=== PATIENT | female | born 1945 | race Caucasian/White ===

== ENCOUNTER 2020-01-04 07:58 | Outpatient (CLI) | payer MEDICARE, SELFPAY ==
--- NOTE | 2020-01-04 08:03 | USCV_ITS ---
Maria R Sargent Age: 74 Gender: F : 1945 Exam Date: 01/04/2020 08:20 Ordering Phys: Viviane Galdamez FUR PLUCKER Technologist: Jackie Vazquez Exam Location: [facility] [place] Indication: atrial fibrillation BP: / HR: 62 Rhythm: Sinus Technical Quality: Good MEASUREMENTS (Male / Female) Normal Values 2D ECHO LV Diastolic Diameter PLAX 4.8 cm 4.2 - 5.9 / 3.9 - 5.3 cm LV Systolic Diameter PLAX 3.0 cm IVS Diastolic Thickness 0.6 cm 0.6 - 1.0 / 0.6 - 0.9 cm IVS Systolic Thickness 1.0 cm LVPW Diastolic Thickness 0.8 cm 0.6 - 1.0 / 0.6 - 0.9 cm LVPW Systolic Thickness 1.4 cm LVOT Diameter 2.0 cm LV Ejection Fraction 2D Teich 67.6 % LV Ejection Fraction MOD 2C 57.0 % LV Ejection Fraction 2C AL 58.4 % LA Diameter 2.8 cm LA Width 3.9 cm LA Height 4.5 cm RA Width 3.9 cm RA Height 3.3 cm M-MODE LV Diastolic Diameter MM 4.9 cm 4.2 - 5.9 / 3.9 - 5.3 cm LV Systolic Diameter MM 3.3 cm LV Ejection Fraction MM Teich 61.9 % IVS Diastolic Thickness MM 1.1 cm 0.6 - 1.0 / 0.6 - 0.9 cm IVS Systolic Thickness MM 1.2 cm LVPW Diastolic Thickness MM 0.8 cm 0.6 - 1.0 / 0.6 - 0.9 cm LVPW Systolic Thickness MM 1.4 cm Aortic Annulus Diameter 3.4 cm LA Ao Ratio MM 0.8 MV E Point Septal Separation 0.5 cm DOPPLER AV Peak Velocity 110.0 cm/s LVOT Peak Velocity 87.0 cm/s AV Area Cont Eq vti 2.8 cm squared AV Area Cont Eq pk 2.5 cm squared MV Peak Velocity 80.0 cm/s MV Area PHT 3.9 cm squared Mitral E to A Ratio 0.8 MV E' Velocity 34.5 cm/s Mitral E to MV E' Ratio 9.0 Mitral E to LV E' Lateral Ratio 7.4 Mitral E to LV E' Septal Ratio 11.9 TR Peak Velocity 242.0 cm/s TR Peak Gradient 23.4 mmHg Right Atrial Pressure 3.0 mmHg Pulmonary Artery Systolic Pressu 26.4 mmHg PV Peak Velocity 123.0 cm/s RV Acceleration Time 0.1 s FINDINGS Left Ventricle Normal left ventricular size and systolic function, EF 60 %. No regional wall motion abnormalities. Right Ventricle The right ventricle is normal in size and function. Right Atrium The right atrium is normal in size. Left Atrium Mildly increased left atrial size. Mitral Valve Mild-moderate mitral valve regurgitation. Aortic Valve Thickened aortic valve. Trace aortic valve regurgitation. Tricuspid Valve Mild tricuspid valve regurgitation. Estimated pulmonary artery peak systolic pressure 26 mmHg Pulmonic Valve Structurally normal pulmonic valve without significant stenosis. There is no pulmonic regurgitation. Pericardium Normal pericardium without effusion. Aorta Normal ascending aorta dimension. CONCLUSIONS Normal left ventricular size and systolic function, EF 60 %. No regional wall motion abnormalities. Mildly increased left atrial size. Mild-moderate mitral valve regurgitation. Thickened aortic valve. Trace aortic valve regurgitation. Mild tricuspid valve regurgitation. Estimated pulmonary artery peak systolic pressure 26 mmHg. There are no intracardiac masses. There is no pericardial effusion. No previous study is available for comparison. Dr Sara Wild MD [facility] (Electronically Signed) Final Date: 04 January 2020 18:23 S
== END 2020-01-04 07:59 | disposition home or self-care (01) ==
LOC: US 08:01
PROVIDERS: PCP Family Medicine; Visit Provider Nurse Practitioner Family
DX: I48.91 Unspecified atrial fibrillation (principal); I08.3 Combined rheumatic disorders of mitral, aortic and tricuspid valves
CPT/HCPCS: 93306

== ENCOUNTER 2020-06-12 15:11 | Outpatient (CLI) | payer MEDICARE, SELFPAY ==
--- NOTE | 2020-06-12 15:18 | MM_ITS ---
WS: [id number] BILATERAL DIGITAL SCREENING MAMMOGRAPHY WITH CAD CLINICAL INFORMATION: SCREENING HISTORY: Screening mammogram. No current complaints. COMPARISON: [id number] TECHNIQUE: Bilateral CC and MLO views. FINDINGS: Scattered fibroglandular densities bilaterally. No suspicious focal mass, asymmetry, calcifications, or architectural distortion. No evidence of malignancy. A few punctate calcifications. Vascular calci fication. MM/[place] [id number] IMPRESSION: BI-RADS: 2-Benign FOLLOW UP: 1 Year Follow-up Recommend return to annual screening mammography.
== END 2020-06-12 15:12 | disposition home or self-care (01) ==
PROVIDERS: PCP Nurse Practitioner Family; Visit Provider Nurse Practitioner Family
DX: Z12.31 Encounter for screening mammogram for malignant neoplasm of breast (principal)
CPT/HCPCS: 77067

== ENCOUNTER → 2021-10-29 15:07 | Outpatient (BNVA) | payer MEDICARE, SELFPAY | PROVIDERS: PCP Nurse Practitioner Family; Visit Provider Internal Medicine | DX: I48.91 Unspecified atrial fibrillation (principal); I10 Essential (primary) hypertension; I34.0 Nonrheumatic mitral (valve) insufficiency; Z87.891 Personal history of nicotine dependence | CPT/HCPCS: 99213; 99214 ==

== ENCOUNTER 2021-11-07 14:11 | Observation (INO) | payer MEDICARE, SELFPAY ==
[2021-11-07] VITALS (13 sets, daily range): BP systolic 118–174; BP diastolic 62–88; PULSE 54–116; RESP 16–20; TEMP 36.5–36.9; O2SAT 92–100; BMI 18.8
--- NOTE | 2021-11-07 14:28 | XR_ITS ---
WS: [id number] Portable AP upright chest, 11/07/2021 Clinical Data: chest pain Comparison: Portable chest, 10/08/2012. Findings: No nodules, masses or effusions are seen. The heart is normal. The pulmonary vascularity is not increased. No pneumonia or pneumothorax is seen. The diaphragms are flattened. The aortic arch a nd descending thoracic aorta show mild calcification and tortuosity. XR/XR chest 1V portable [id number] Impression: Atherosclerosis and hyperinflation.
--- NOTE | 2021-11-07 14:28 | ECG_ITS ---
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 Measurements Intervals [place] Rate: 67 P: 70 DE: 153 QRS: 72 QRSD: 78 T: 72 QT: 398 QTc: 421 Interpretive Statements SINUS RHYTHM MINIMAL VOLTAGE CRITERIA FOR LVH, CONSIDER NORMAL VARIANT [MEETS CRITERIA IN ONE OF: R(aVL), S(V1), R(V5), R(V5/V6)+S(V1)] No previous ECG available for comparison Electronically Signed On 11-08-2021 12:49:57 CDT by Stephenie Carlson M.D. [email or web address] health [email or web address]/store/NU/[id number] f
[2021-11-07 15:25] LABS: Basophils % 0.4 %; Eosinophils # 0.1 10^3/uL (0.0-0.8); Eosinophils % 1.8 %; Hemoglobin 7.3 g/dL (11.5-15.3); Lymphocytes # 1.5 10^3/uL (0.8-4.8); Lymphocytes % 29.3 %; Mean Corpuscular HGB Conc 31.7 g/dL (30.0-36.0); Mean Corpuscular Hemoglobin 29.2 pg (28.0-34.0); Mean Platelet Volume 9.8 fL (7.4-10.4); Monocytes # 0.5 10^3/uL (0.2-0.9); Monocytes % 9.2 %; Neutrophils # 3.01 10^3/uL (1.8-7.7); Neutrophils % 59.1 %; Nucleated Red Blood Cells % 0 %; Platelet Count 216 10^3/cmm (130-400); Red Cell Distribution Width 15.2 % (12.1-15.1); White Blood Count 5.1 10^3/uL (4.0-10.0)
[2021-11-07 15:51] LABS: Troponin(5th) Baseline 8 ng/L (0-10)
[2021-11-07 15:54] LABS: Alanine Aminotransferase 23 U/L (0-33); Albumin Level 3.6 g/dL (3.5-5.2); Alkaline Phosphatase 70 IU/L (35-105); Anion Gap 11.6 (5-19); Aspartate Amino Transferase 37 U/L (0-32); Blood Urea Nitrogen 21 mg/dL (8-23); Calcium 8.5 mg/dL (8.5-10.5); Carbon Dioxide 26 mmol/L (22-29); Chloride 109 mmol/L (98-107); Globulin 2.1 g/dL (1.3-4.6); Glucose 92 mg/dL (65-115); Osmolality Calculated 299 mOsm/kg (285-295); Potassium 3.6 mmol/L (3.5-5.1); Sodium 143 mmol/L (136-145); Total Bilirubin 0.2 mg/dL (0.15-1.2); Total Protein 5.7 g/dL (6.6-8.7)
--- NOTE | 2021-11-07 15:59 | W.ED.GENADLT ---
HPI - General Adult General: Chief complaint: General Medical Stated complaint: Wekaness, Heart palptations, with some pain Time Seen by Provider: 11/07/21 15:51 Source: patient Mode of arrival: ambulatory History of Present Illness: 75-year-old female presents emergency room complaining of weakness or palpitations. She states she has had it for the last week she also had some dark stools. She has a history of atrial fibrillation mitral regurg and hypertension. She is on Xarelto and metoprolol she has been on both of these for some time now no recent medication dose adjustments. She denies any chest pain or discomfort she has no known history of coronary disease or stroke she is not diabetic. Onset (ago): minute(s) Severity: mild Relieving factors: none Exacerbating factors: none Associated symptoms: Reports dyspnea, malaise, short of breath and weakness; Deny chest pain, confusion, cough, diaphoresis, decreased appetite, fevers/chills, headache(s), nausea, rash, palpitations, seizures, syncope or vomiting Review of Systems Const: Reports: malaise; Denies: fever(s), chills, fatigue or diaphoresis ENMT: Denies: throat pain, ear or mastoid pain, nasal discharge or nasal congestion Card: Denies: chest pain, palpitations or syncope Resp: Reports: dyspnea; Denies: productive cough, non-productive cough or wheezing GI: Denies: abdominal pain, nausea, vomiting or hematochezia : Denies: flank pain, difficulty voiding, dysuria, urinary frequency or urinary urgency Skin/Breast: Denies: rash Neuro: Denies: headache(s) or confusion PFS ED PFSH: Medical History Afib Hypertension Mitral regurgitation Social History Smoking and tobacco status: former smoker Alcohol intake: never Physical Exam Const: GENERAL APPEARANCE: cooperative and comfortable ORIENTATION/CONSCIOUSNESS: Yes awake, Yes oriented to person, Yes oriented to place and Yes oriented to time HENMT: COMMON NORMALS: normocephalic, atraumatic and hearing grossly normal bilaterally HEAD & SCALP: normocephalic and atraumatic Resp: COMMON NORMALS: normal respiratory effort, No retractions, No use of accessory muscles and clear to auscultation bilaterally AUSCULTATION: clear to auscultation bilaterally Cardio: COMMON NORMALS: regular rate, regular rhythm and No murmurs present (Cardio) RATE: regular rate RHYTHM: regular rhythm GI: COMMON NORMALS: Soft to palpation and No hepatosplenomegaly present AUSCULTATION: Yes normoactive bowel sounds PALPATION: Yes Soft to palpation, No Tenderness to palpation present (GI), No Guarding due to palpation present (GI) and Yes No hepatosplenomegaly present Extremity: COMMON NORMALS: normal to inspection, capillary refill normal, no clubbing, cyanosis or edema, no calf tenderness and no pedal edema Neuro: SENSORIUM/ORIENTATION: Yes oriented to person, Yes oriented to place and Yes oriented to time Skin: COMMON NORMALS: no rashes or lesions noted GENERAL SKIN EXAM: no rashes or lesions noted Course Vital Signs: Vital signs: Vital Signs Temperature 98.4 F 11/07/21 14:29 Pulse Rate 67 11/07/21 14:29 Respiratory Rate 16 11/07/21 14:29 Blood Pressure 130/66 11/07/21 14:29 Pulse Oximetry 99 11/07/21 14:29 Oxygen Delivery Me thod 11/07/21 14:29 MDM - General Adult Medical Decision Making Patient significantly anemic with suspected upper GI bleed secondary to her anticoagulant. Hold anticoagulant transfuse 1 unit of blood monitor patient she may require an EGD discussed with hospitalist orders written Medical Records I reviewed the patient's medical records. Lab Data I reviewed the patient's lab results. : 11/07/21 14:19 11/07/21 14:19 Radiology Impressions Chest X-Ray 11/07/21 14:28 Impression: Atherosclerosis and hyperinflation. Laboratory Results WBC 5.1 10^3/uL (4.0-10.0) 11/07/21 14:19 RBC 2.50 10^6/uL (4.1-5.3) L 11/07/21 14:19 Hgb 7.3 g/dL (11.5-15.3) L 11/07/21 14:19 Hct 23.0 % (37.0-47.0) L 11/07/21 14:19 MCV 92.0 fl (81-99) 11/07/21 14:19 MCH 29.2 pg (28.0-34.0) 11/07/21 14:19 MCHC 31.7 g/dL (30.0-36.0) 11/07/21 14:19 RDW 15.2 % (12.1-15.1) H 11/07/21 14:19 Plt Count 216 10^3/cmm (130-400) 11/07/21 14:19 MPV 9.8 fL (7.4-10.4) 11/07/21 14:19 Neut % (Auto) 59.1 % 11/07/21 14:19 Lymph % (Auto) 29.3 % 11/07/21 14:19 Kinney % (Auto) 9.2 % 11/07/21 14:19 Eos % (Auto) 1.8 % 11/07/21 14:19 Baso % (Auto) 0.4 % 11/07/21 14:19 Reticulocyte % (Auto) 5.0 % (0.5-2.0) H 11/07/21 14:19 Neut # (Auto) 3.01 10^3/uL (1.8-7.7) 11/07/21 14:19 Lymph # (Auto) 1.5 10^3/uL (0.8-4.8) 11/07/21 14:19 Kinney # (Auto) 0.5 10^3/uL (0.2-0.9) 11/07/21 14:19 Eos # (Auto) 0.1 10^3/uL (0.0-0.8) 11/07/21 14:19 Baso # (Auto) 0.0 10^3/uL (0.0-0.1) 11/07/21 14:19 Nucleated RBC % (auto) 0 % 11/07/21 14:19 Nucleated RBCs # 0.0 /100WBC 11/07/21 14:19 PT 16.50 SECONDS (12.1-14.9) H 11/07/21 16:18 INR 1.29 (0.8-1.2) H 11/07/21 16:18 APTT 29.8 SECONDS (23.9-36.7) 11/07/21 16:18 Sodium 143 mmol/L (136-145) 11/07/21 14:19 Potassium 3.6 mmol/L (3.5-5.1) 11/07/21 14:19 Chloride 109 mmol/L (98-107) H 11/07/21 14:19 Carbon Dioxide 26 mmol/L (22-29) 11/07/21 14:19 Anion Gap 11.6 (5-19) 11/07/21 14:19 BUN 21 mg/dL (8-23) 11/07/21 14:19 Creatinine 0.7 mg/dL (0.5-0.9) 11/07/21 14:19 GFR Calculation Not Reportable 11/07/21 14:19 Glucose 92 mg/dL (65-115) 11/07/21 14:19 Calculated Osmolality 299 mOsm/kg (285-295) H 11/07/21 14:19 Calcium 8.5 mg/dL (8.5-10.5) 11/07/21 14:19 Iron 30 ug/dL (37-145) L 11/07/21 14:19 TIBC 252 mcg/dl 11/07/21 14:19 % Saturation 11.9 % (20-50) L 11/07/21 14:19 Unsat Iron Binding 222 ug/dL (112-347) 11/07/21 14:19 Transferrin 224 mg/dL (200-360) 11/07/21 14:19 Ferritin 70 ng/mL (15-150) 11/07/21 14:19 Total Bilirubin 0.2 mg/dL (0.15-1.2) 11/07/21 14:19 AST 37 U/L (0-32) H 11/07/21 14:19 ALT 23 U/L (0-33) 11/07/21 14:19 Alkaline Phosphatase 70 IU/L (35-105) 11/07/21 14:19 Troponin T Baseline 8 ng/L (0-10) 11/07/21 14:19 Troponin T 120 Minute 7.53 ng/L (0-10) 11/07/21 16:18 Delta Troponin T -0.47 ABS# (0-10) L 11/07/21 16:18 Total Protein 5.7 g/dL (6.6-8.7) L 11/07/21 14:19 Albumin 3.6 g/dL (3.5-5.2) 11/07/21 14:19 Globulin 2.1 g/dL (1.3-4.6) 11/07/21 14:19 Vitamin B12 267 pg/mL (232-1245) 11/07/21 14:19 Blood Type A Positive 11/07/21 16:12 Rho(D) Type Positive 11/07/21 16:12 Antibody Screen Negative 11/07/21 16:12 Crossmatch See Detail 11/07/21 16:12 Discharge Plan Discharge Patient Disposition: Placed in Observation Admit Provider: Bill Spangler Clinical Impression: Anemia, Hypertension, Afib Condition: Stable Coding Level of Care Code ED Gas Engine Operator for Chg Fwd Exam Detailed
--- NOTE | 2021-11-07 16:28 | ECG_ITS ---
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 Measurements Intervals [place] Rate: 67 P: 78 [place]: 143 QRS: 69 QRSD: 85 T: 69 QT: 433 QTc: 459 Interpretive Statements SINUS RHYTHM LEFT VENTRICULAR HYPERTROPHY AND ST-T CHANGE [VOLTAGE CRITERIA PLUS ST/T ABNORMALITY] Compared to ECG 11/07/2021 14:27:47 ST (T wave) deviation now present Electronically Signed On 11-08-2021 12:53:14 CDT by Stephenie Carlson M.D. [id number]
--- NOTE | 2021-11-07 16:34 | PM.HP ---
Providers/Chief Complaint Primary Care Provider: LAURA Chapa Chief Complaint: Wekaness, Heart palptations, with some pain History of Present Illness Maria R Sargent is a 75 year old female with PMH of HTN as well as A.Fib on xaralto came in with c/o generalized weakness as well as fatigue and SOB with exertion going on for the last few weeks she is also complaining of dark stool. She has denied any weight loss, nausea, vomiting, abdominal pain , chest pain,fever,cough. Upon arrival in the ER she was worked up for above mention complain. Pertienet imaging studies: Xray chest : No infiltrates, hyperinflated lungs. EKG: SR Pertinent labs : WBC:5.1 H&:H: 7.3/23 PLT : 216 NA: 143 K : 3.6 BUN/SCR : 21/0.7 Review of Systems General: Reports: 10 or more systems reviewed and unremarkable except in HPI and below Const: Denies: fever(s), chills, body aches, change in appetite or diaphoresis Card: Denies: edema, swelling of feet/ankles, dyspnea on exertion, orthopnea or leg pain with exertion Resp: Denies: dyspnea, productive cough, wheezing or pain on inspiration GI: Denies: abdominal pain, nausea, vomiting, diarrhea or constipation : Denies: flank pain Musc: Denies: back pain, extremity pain or extremity swelling Neuro: Denies: headache(s), difficulty walking or confusion Medications/Allergies Home Medications Medication Instructions Recorded Confirmed Last Taken Type metoprolol tartrate 25 mg tablet 25 mg PO BID #180 tabs 04/22/21 11/07/21 11/07/21 Rx rivaroxaban 20 mg tablet (Xarelto) 20 mg PO DAILY #90 tabs 05/16/21 11/07/21 11/07/21 Rx Allergies Allergy/AdvReac Type Severity Reaction Status Date / Time Sulfa (Sulfonamide Allergy Unknown Unknown Verified 11/07/21 16:03 Antibiotics) PFSH Acute PFSH: Medical History Afib Hypertension Mitral regurgitation Social History Smoking and tobacco status: former smoker Alcohol intake: never Vitals/I&O/Wt Last Vital Signs Temp 98.4 F 11/07/21 14:29 Pulse 67 11/07/21 14:29 Resp 16 11/07/21 14:29 BP 130/66 11/07/21 14:29 Pulse Ox 99 11/07/21 14:29 O2 Del Method 11/07/21 14:29 Weight last 48 hrs Weight 58.967 kg Physical Exam Const: COMMON NORMALS: patient oriented x3 HENMT: COMMON NORMALS: normocephalic and atraumatic Eye: COMMON NORMALS: no scleral icterus Resp: COMMON NORMALS: normal respiratory effort, No retractions, No use of accessory muscles and clear to auscultation bilaterally EFFORT & INSPECTION: Yes symmetric chest movement AUSCULTATION: clear to auscultation bilaterally Cardio: COMMON NORMALS: regular rate, regular rhythm, S1 normal heart sound present, S2 normal heart sound present, No gallops present (Cardio), No murmurs present (Cardio), No rub (Cardio) and Peripheral pulses 2+ throughout RATE: regular rate RHYTHM: regular rhythm HEART SOUNDS: S1 normal heart sound present and S2 normal heart sound present PERIPHERAL PULSES: Peripheral pulses 2+ throughout GI: COMMON NORMALS: Normal to inspection, nondistended, normoactive bowel sounds present, Soft to palpation, non-tender, No hepatosplenomegaly present and no masses AUSCULTATION: Yes normoactive bowel sounds PALPATION: Yes Soft to palpation and Yes No hepatosplenomegaly present RECTAL EXAM: deferred Extremity: COMMON NORMALS: no clubbing, cyanosis or edema and no pedal edema Neuro: COMMON NORMALS: patient oriented x3 Data : 11/07/21 14:19 11/07/21 14:19 A&P Assessment and plan (1) Afib: Status: Acute (2) Mitral regurgitation: Status: Acute (3) Hypertension: Status: Acute (4) Anemia: Status: Acute Plan 75 year old female with PMH of HTN as well as A.Fib on xaralto came in with c/o generalized weakness as well as fatigue and SOB with exertion going on for the last few weeks she is also complaining of dark stool. Assessment : UGIB Anemia A.Fib HTN Plan : Follow anemia pane l : Transfuse 1 u PRBC Maintain Hb>7 Monitor H&H Hold Xaralto NPO after midnight for EGD in am DVT:PPX :ON SCDS Code Status :Full code Attestations Medical Necessity Statement*: Patient needs to be in hospital for the management of severe symptomatic Anemia. Time Spent in Patient Care: Greater than 35 minutes (>than 50% of time spent in counselling and/or direct pt care on unit). Coding Level of Care Code Acute Sole Stapler Welt for g Fwd Exam Detailed Diagnoses Afib I48.91 Mitral regurgitation I34.0 Hypertension I10 Anemia D64.9
[2021-11-07 16:37] LABS: INR 1.29 (0.8-1.2); Partial Thromboplastin Time 29.8 SECONDS (23.9-36.7)
--- NOTE | 2021-11-07 16:40 | PC.NURSE ---
PT PLACED ON CONTINUOUS NIBP, SPO2, AND CM
[2021-11-07 16:57] LABS: Ferritin 70 ng/mL (15-150); Iron 30 ug/dL (37-145); Percent Saturation 11.9 % (20-50); Total Iron Binding Capacity 252 mcg/dl; Transferrin 224 mg/dL (200-360); Unsaturated Iron Binding 222 ug/dL (112-347)
[2021-11-07 17:04] LABS: Troponin 5 2HR 7.53 ng/L (0-10)
[2021-11-07 17:13] LABS: Vitamin B12 267 pg/mL (232-1245)
[2021-11-07 17:17] LABS: Troponin 5 2HR Delta -0.47 ABS# (0-10)
[2021-11-07 17:46] LABS: Folate Level > 20.0 ng/mL (4.8-37.3)
[2021-11-07] MEDS: pantoprazole 40 mg SDV IVP (18:54)
[2021-11-07] MEDS: metoprolol tartrate 25 mg Tablet PO (18:54)
[2021-11-07 21:01] LABS: Troponin 5 6HR 8.96 ng/L (0-10)
[2021-11-07 21:18] LABS: Troponin 5 6HR Delta 0.96 ng/L (0-12)
--- NOTE | 2021-11-07 21:32 | ECG_ITS ---
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 Measurements Intervals [place] Rate: 57 P: 48 [place]: 169 QRS: 66 QRSD: 80 T: 71 QT: 451 QTc: 442 Interpretive Statements SINUS BRADYCARDIA MODERATE VOLTAGE CRITERIA FOR LVH, CONSIDER NORMAL VARIANT [MEETS CRITERIA IN ONE OF: R(aVL), S(V1), R(V5), R(V5/V6)+S(V1)] Compared to ECG 11/07/2021 16:55:47 Sinus rhythm no longer present ST (T wave) deviation no longer present Electronically Signed On 11-08-2021 12:52:24 CDT by Stephenie Carlson M.D. [id number]
[2021-11-08] VITALS (8 sets, daily range): BP systolic 98–141; BP diastolic 49–75; PULSE 50–72; RESP 15–18; TEMP 36.1–36.7; O2SAT 96–100
[2021-11-08 03:04] LABS: Basophils % 0.9 %; Eosinophils # 0.1 10^3/uL (0.0-0.8); Eosinophils % 3.2 %; Hematocrit 27.1 % (37.0-47.0); Hemoglobin 8.4 g/dL (11.5-15.3); Lymphocytes # 1.5 10^3/uL (0.8-4.8); Lymphocytes % 34.7 %; Mean Corpuscular Hemoglobin 28.9 pg (28.0-34.0); Mean Corpuscular Volume 93.1 fl (81-99); Mean Platelet Volume 10.3 fL (7.4-10.4); Monocytes # 0.5 10^3/uL (0.2-0.9); Monocytes % 11.4 %; Neutrophils # 2.17 10^3/uL (1.8-7.7); Neutrophils % 49.6 %; Nucleated Red Blood Cells % 0 %; Platelet Count 184 10^3/cmm (130-400); Red Blood Count 2.91 10^6/uL (4.1-5.3); Red Cell Distribution Width 16.3 % (12.1-15.1); White Blood Count 4.4 10^3/uL (4.0-10.0)
[2021-11-08 03:29] LABS: Blood Urea Nitrogen 19 mg/dL (8-23); Calcium 8.3 mg/dL (8.5-10.5); Carbon Dioxide 24 mmol/L (22-29); Chloride 111 mmol/L (98-107); Glucose 83 mg/dL (65-115); Osmolality Calculated 295 mOsm/kg (285-295); Sodium 142 mmol/L (136-145)
[2021-11-08] MEDS: pantoprazole 40 mg SDV IVP (05:59)
[2021-11-08] MEDS: sodium chloride 0.9% (100 ml) 100 ML (05:59)
[2021-11-08] MEDS: metoprolol tartrate 25 mg Tablet PO (07:51)
--- NOTE | 2021-11-08 09:04 | P.CONIM_ITS ---
Providers/Reason For Consult Consulting Physician/Specialty*: General Surgery Dr. Hightower Reason for Consult*: Mana Attending Physician: Bill Spangler MD Primary Care Provider: LAURA Chapa History of Present Illness History of Present Illness Maria R Sargent is a 75 year old female who presented to the ER yesterday with complaints of generalized weakness, fatigue and shortness of breath. Patient states that she has been passing black stools for the last few days. She denies any abdominal pain, nausea, vomiting, hematemesis. No prior episodes of EGD, PUD or GERD. She has never had a colonoscopy before. Review of Systems General: Reports: 10 or more systems reviewed and unremarkable except in HPI and below Medications/Allergies Home Medications Medication Instructions Recorded Confirmed Last Taken Type metoprolol tartrate 25 mg tablet 25 mg PO BID #180 tabs 04/22/21 11/07/21 11/07/21 Rx rivaroxaban 20 mg tablet (Xarelto) 20 mg PO DAILY #90 tabs 05/16/21 11/07/21 11/07/21 Rx Allergies Allergy/AdvReac Type Severity Reaction Status Date / Time Sulfa (Sulfonamide Allergy Unknown Unknown Verified 11/07/21 16:03 Antibiotics) Current Medications Generic Name Dose Route Start Last Admin Trade Name Freq PRN Reason Stop Dose Admin Metoprolol Tartrate 25 mg 11/07/21 18:00 11/08/21 07:51 Metoprolol Tartrate 25 Mg Tablet PO 25 mg BID SAMREEN Administration Pantoprazole Sodium 40 mg 11/07/21 18:00 11/08/21 05:59 Pantoprazole 40 Mg Sdv IVP 40 mg Q12H SAMREEN Administration PFSH Acute PFSH: Medical History Afib Hypertension Mitral regurgitation Social History Smoking and tobacco status: former smoker Alcohol intake: never Vitals/I&O/Wt Last Vital Signs Temp 97.9 F 11/08/21 07:41 Pulse 58 L 11/08/21 07:41 Resp 16 11/08/21 07:41 BP 132/73 11/08/21 07:41 Pulse Ox 96 11/08/21 07:41 O2 Del Method 11/08/21 07:41 08/07/2611/08/21 11/08/21 22:59 06:59 14:59 Intake Total 120 / 370 250 / 370 Output Total 200 / 200 Balance 120 / 170 50 / 170 Weight last 48 hrs Weight 124 lb 4.8 oz Weight 124 lb 3.2 oz Weight 130 lb Physical Exam Narrative: HEENT: Normocephalic Eye: Sclera /conjunctiva normal Abdomen: Soft to palpation, nontender, nondistended Neurological: Oriented to place person and time Skin: Intact, no lesions appreciated on gross exam Data : 11/08/21 02:16 11/08/21 02:16 A&P Assessment and plan (1) Anemia: 75-year-old female who presented with generalized weakness and melena. She is on Xarelto for atrial fibrillation. Her hemoglobin on admission was 7.3. She received 1 unit PRBC and her hemoglobin is up to 8.4. Plan for EGD under MAC today Discussed with the patient about performing an EGD to identify the potential source of the melena which will also help with deciding when she could be restarted on her Xarelto. Procedure, risks, benefits and alternatives have been discussed with the patient who wishes to proceed with surgery. Status: Acute Consult Attestations Medical Necessity Statement: As per attending physician Coding Level of Care Code Acute Market Research Analyst for g Fwd Diagnoses Anemia D64.9
[2021-11-08] MEDS: sodium chloride 0.9% 1,000 ML 30 ML IV (09:08)
--- NOTE | 2021-11-08 09:24 | ANES.PREANE2 ---
Pre-Anesthetic Assessment Height/Weight: Height 1.73 m Weight 56.382 kg Temp Pulse Resp BP Pulse Ox O2 Del Method 97.0 F L 51 L 16 141/75 97 11/08/21 09:18 11/08/21 09:18 11/08/21 09:18 11/08/21 09:18 11/08/21 09:18 11/08/21 09:18 Preop Diagnosis: melena Operation Date: 11/08/21 09:15 Proposed Procedures p EGD(Not Applicable) - Billy Hightower MD Familial anesthetic complications: none Was Beta Antonio taken within 24 hours: Yes Was Clonidine taken within 24 hours: N/A Social No alcohol and No tobacco Exam alert, oriented x 3 and clear to auscultation bilaterally irregular rhythm, regular rate Airway Submandibular: within normal limits Cervical ROM: within normal limits Mallampati: Class II Dentition: false Pulmonary None reported CV/HEM Atrial Fibrillation, Anemia, Hypertension and Murmur None reported Hepatic None reported GI GI bleed Metabolic None reported Musc/skel None reported Neuropsych None reported Anesthetic Plan ASA status: 3 Anesthesia: Anesthesia Evaluation, General and MAC Other: I discussed with the patient risks, goals, and benefits of MAC and general anesthesia. We discussed spectrum of MAC anesthesia including conversion to general as well as possibility of recall of intraoperative stimuli including discomfort/pain. Patient agrees to proceed with MAC. Risk of > 500 ml blood loss (7ml/kg in children): No Medications/Allergies Home Medications Medication Instructions Recorded Confirmed Last Taken Type metoprolol tartrate 25 mg tablet 25 mg PO BID #180 tabs 04/22/21 11/07/21 11/07/21 Rx rivaroxaban 20 mg tablet (Xarelto) 20 mg PO DAILY #90 tabs 05/16/21 11/07/21 11/07/21 Rx Allergies Allergy/AdvReac Type Severity Reaction Status Date / Time Sulfa (Sulfonamide Allergy Unknown Unknown Verified 11/07/21 16:03 Antibiotics) Current Medications Generic Name Dose Route Start Last Admin Trade Name Freq PRN Reason Stop Dose Admin Metoprolol Tartrate 25 mg 11/07/21 18:00 11/08/21 07:51 Metoprolol Tartrate 25 Mg Tablet PO 25 mg BID SAMREEN Administration Pantoprazole Sodium 40 mg 11/07/21 18:00 11/08/21 05:59 Pantoprazole 40 Mg Sdv IVP 40 mg Q12H SAMREEN Administration PFSH Anesthesia Medical History Afib Hypertension Mitral regurgitation Social History Smoking and tobacco status: former smoker Alcohol intake: never Data Anesthesia : 11/08/21 02:16 11/08/21 02:16 Short CBC 11/07/21 11/08/21 Range/Units 14:19 02:16 WBC 5.1 4.4 (4.0-10.0) 10^3/uL Hgb 7.3 L 8.4 L (11.5-15.3) g/dL Hct 23.0 L 27.1 L (37.0-47.0) % MCV 92.0 93.1 (81-99) fl Plt Count 216 184 (130-400) 10^3/cmm Neut % (Auto) 59.1 49.6 % Neut # (Auto) 3.01 2.17 (1.8-7.7) 10^3/uL BMP 11/07/21 11/08/21 14:19 02:16 Sodium 143 142 Potassium 3.6 4.0 Chloride 109 H 111 H Carbon Dioxide 26 24 BUN 21 19 Creatinine 0.7 0.6 Glucose 92 83 Calcium 8.5 8.3 L Cardiac Enzymes 11/07/21 11/07/21 11/07/21 Range/Units 14:19 16:18 20:21 Troponin T Baseline 8 (0-10) ng/L Troponin T 120 Minute 7.53 (0-10) ng/L Delta Troponin T -0.47 L (0-10) ABS# Troponin T Hi Sens 6Hr 8.96 (0-10) ng/L Troponin T Hi Sens 6Hr Delta 0.96 (0-12) ng/L Liver Function 11/07/21 Range/Units 14:19 Total Bilirubin 0.2 (0.15-1.2) mg/dL AST 37 H (0-32) U/L ALT 23 (0-33) U/L Alkaline Phosphatase 70 (35-105) IU/L Albumin 3.6 (3.5-5.2) g/dL Blood Bank 11/07/21 16:12 Blood Type A Positive Rho(D) Type Positive Antibody Screen Negative Coags 11/07/21 16:18 PT 16.50 H INR 1.29 H APTT 29.8 Cardiac Studies: Echocardiogram Ultrasound 01/04/20
--- NOTE | 2021-11-08 12:25 | ANE.PACU2 ---
Inpatient post-anesthesia follow up: Airway intact: Yes Vital signs: Temperature 98.0 F Pulse Rate 72 Respiratory Rate 18 Blood Pressure 107/68 Pulse Oximetry 97 Oxygen Delivery Me thod [ Room Air Current Rate & Del val] Oxygen Delivery Me thod Room Air Oxygen Flow Rate 3 Fraction of Inspir ed Oxygen Hydration adequate: Yes Nausea and vomiting: No Pain level: 1 Mental status: Baseline
--- NOTE | 2021-11-08 15:59 | P.DS_ITS ---
Discharge Providers Date of Admission: 11/07/21 16:31 Date of Discharge: November 08, 2021 Attending Provider at Admission: Bill Spangler MD Attending Provider at Discharge: Bill Spangler MD Primary Care Provider: Viviane Galdamez, LAURA Diagnoses at Discharge Discharge Diagnosis (1) Anemia: Status: Acute Reason for Visit Reason for Visit: Wekaness, Heart palptations, with some pain Hospital Course Hospital Course Maria R Sargent is a 75 year old female with PMH of HTN as well as A.Fib on xaralto came in with c/o? generalized weakness as well as fatigue and SOB with exertion going on for the last few weeks she is also complaining of dark stool. She has denied any weight loss, nausea, vomiting, abdominal pain , chest pain,fever,cough. Upon arrival in the ER she was worked up for above mention complain. Pertienet imaging studies: Xray chest : No infiltrates, hyperinflated lungs. EKG: SR Pertinent labs : WBC:5.1? H&:H: 7.3/23 PLT : 216 NA: 143 K : 3.6? BUN/SCR : 21/0.7 Serum iron 30, TIBC 252, percent saturation:11.9 , serum ferritin : 70, transferrin;224, vitamin B12 : 267 Folate greater than 20. Hospital course: She was admitted for the management of anemia likely secondary to UGI bleed: Secondary to anticoagulation, patient received 1 unit transfusion, posttransfusion CBC was monitored: H&H at the time of discharge was:8.4/27. EGD was done during the hospital stay: Was normal. Patient has been advised to continue to hold Xarelto for a week, will repeat CBC in a week, if H&H is stable, Xarelto can be resumed. She is also being discharged on p.o. Protonix as well as p.o. iron tablets. She has been educated on the signs of hypovolemia. Overall patient has responded well to above medical management and is being discharged in stable condition to home. She will continue to follow primary care physician as outpatient. Physical Exam Const: COMMON NORMALS: patient oriented x3 HENMT: COMMON NORMALS: normocephalic and atraumatic HEAD & SCALP: normocephalic and atraumatic Eye: COMMON NORMALS: no scleral icterus Resp: COMMON NORMALS: normal respiratory effort, No retractions, No use of accessory muscles and clear to auscultation bilaterally EFFORT & INSPECTION: Yes symmetric chest movement AUSCULTATION: clear to auscultation bilaterally Cardio: COMMON NORMALS: regular rate, regular rhythm, S1 normal heart sound present, S2 normal heart sound present, No gallops present (Cardio), No murmurs present (Cardio), No rub (Cardio) and Peripheral pulses 2+ throughout RATE: regular rate RHYTHM: regular rhythm HEART SOUNDS: S1 normal heart sound present and S2 normal heart sound present PERIPHERAL PULSES: Peripheral pulses 2+ throughout GI: COMMON NORMALS: Normal to inspection, nondistended, normoactive bowel sounds present, Soft to palpation, non-tender, No hepatosplenomegaly present and no masses AUSCULTATION: Yes normoactive bowel sounds PALPATION: Yes Soft to palpation and Yes No hepatosplenomegaly present RECTAL EXAM: deferred Extremity: COMMON NORMALS: no clubbing, cyanosis or edema and no pedal edema Neuro: COMMON NORMALS: patient oriented x3 Discharge Data Studies Completed and Pending Completed Studies During Hospitalization Category Date Time Status XR chest 1V portable [id number] Urgent Exams 11/07/21 14:28 Completed Radiology Impressions Chest X-Ray 11/07/21 14:28 Impression: Atherosclerosis and hyperinflation. Laboratory Results WBC 4.4 10^3/uL (4.0-10.0) 11/08/21 02:16 RBC 2.91 10^6/uL (4.1-5.3) L 11/08/21 02:16 Hgb 8.4 g/dL (11.5-15.3) L 11/08/21 02:16 Hct 27.1 % (37.0-47.0) L 11/08/21 02:16 MCV 93.1 fl (81-99) 11/08/21 02:16 MCH 28.9 pg (28.0-34.0) 11/08/21 02:16 MCHC 31.0 g/dL (30.0-36.0) 11/08/21 02:16 RDW 16.3 % (12.1-15.1) H 11/08/21 02:16 Plt Count 184 10^3/cmm (130-400) 11/08/21 02:16 MPV 10.3 fL (7.4-10.4) 11/08/21 02:16 Neut % (Auto) 49.6 % 11/08/21 02:16 Lymph % (Auto) 34.7 % 11/08/21 02:16 Shelby % (Auto) 11.4 % 11/08/21 02:16 Eos % (Auto) 3.2 % 11/08/21 02:16 Baso % (Auto) 0.9 % 11/08/21 02:16 Reticulocyte % (Auto) 5.0 % (0.5-2.0) H 11/07/21 14:19 Neut # (Auto) 2.17 10^3/uL (1.8-7.7) 11/08/21 02:16 Lymph # (Auto) 1.5 10^3/uL (0.8-4.8) 11/08/21 02:16 Shelby # (Auto) 0.5 10^3/uL (0.2-0.9) 11/08/21 02:16 Eos # (Auto) 0.1 10^3/uL (0.0-0.8) 11/08/21 02:16 Baso # (Auto) 0.0 10^3/uL (0.0-0.1) 11/08/21 02:16 Nucleated RBC % (auto) 0 % 11/08/21 02:16 Nucleated RBCs # 0.0 /100WBC 11/08/21 02:16 PT 16.50 SECONDS (12.1-14.9) H 11/07/21 16:18 INR 1.29 (0.8-1.2) H 11/07/21 16:18 APTT 29.8 SECONDS (23.9-36.7) 11/07/21 16:18 Sodium 142 mmol/L (136-145) 11/08/21 02:16 Potassium 4.0 mmol/L (3.5-5.1) 11/08/21 02:16 Chloride 111 mmol/L (98-107) H 11/08/21 02:16 Carbon Dioxide 24 mmol/L (22-29) 11/08/21 02:16 Anion Gap 11.0 (5-19) 11/08/21 02:16 BUN 19 mg/dL (8-23) 11/08/21 02:16 Creatinine 0.6 mg/dL (0.5-0.9) 11/08/21 02:16 GFR Calculation Not Reportable 11/08/21 02:16 Glucose 83 mg/dL (65-115) 11/08/21 02:16 Calculated Osmolality 295 mOsm/kg (285-295) 11/08/21 02:16 Calcium 8.3 mg/dL (8.5-10.5) L 11/08/21 02:16 Iron 30 ug/dL (37-145) L 11/07/21 14:19 TIBC 252 mcg/dl 11/07/21 14:19 % Saturation 11.9 % (20-50) L 11/07/21 14:19 Unsat Iron Binding 222 ug/dL (112-347) 11/07/21 14:19 Transferrin 224 mg/dL (200-360) 11/07/21 14:19 Ferritin 70 ng/mL (15-150) 11/07/21 14:19 Total Bilirubin 0.2 mg/dL (0.15-1.2) 11/07/21 14:19 AST 37 U/L (0-32) H 11/07/21 14:19 ALT 23 U/L (0-33) 11/07/21 14:19 Alkaline Phosphatase 70 IU/L (35-105) 11/07/21 14:19 Troponin T Baseline 8 ng/L (0-10) 11/07/21 14:19 Troponin T 120 Minute 7.53 ng/L (0-10) 11/07/21 16:18 Delta Troponin T -0.47 ABS# (0-10) L 11/07/21 16:18 Troponin T Hi Sens 6Hr 8.96 ng/L (0-10) 11/07/21 20:21 Troponin T Hi Sens 6Hr Delta 0.96 ng/L (0-12) 11/07/21 20:21 Total Protein 5.7 g/dL (6.6-8.7) L 11/07/21 14:19 Albumin 3.6 g/dL (3.5-5.2) 11/07/21 14:19 Globulin 2.1 g/dL (1.3-4.6) 11/07/21 14:19 Vitamin B12 267 pg/mL (232-1245) 11/07/21 14:19 Folate > 20.0 ng/mL (4.8-37.3) 11/07/21 14:19 Blood Type A Positive 11/07/21 16:12 Rho(D) Type Positive 11/07/21 16:12 Antibody Screen Negative 11/07/21 16:12 Crossmatch See Detail 11/07/21 16:12 Vitals Last Vital Signs Temp 98.0 F 11/08/21 11:58 Pulse 72 11/08/21 11:58 Resp 18 11/08/21 11:58 BP 107/68 11/08/21 11:58 Pulse Ox 97 11/08/21 11:58 O2 Del Method 11/08/21 11:58 O2 Flow Rate 3 11/08/21 10:45 Discharge Plan Discharge Patient Disposition: Home Condition: Stable Prescriptions: New Protonix 40 mg tablet,delayed release (DR/EC) 40 mg PO DAILY Qty: 30 3RF ferrous sulfate 324 mg (65 mg iron) tablet,delayed release (DR/EC) 324 mg PO BID 30 Days Qty: 60 3RF Continued metoprolol tartrate 25 mg tablet 25 mg PO BID Qty: 180 3RF Held Xarelto 20 mg tablet 20 mg PO DAILY Qty: 90 3RF Hold Instructions: Resume on 11/15/21. Rx Instructions: must administer with evening meal Discharge Orders: Discharge Order (Routine); Ordered 11/08/21 Ordered By: Bill Spangler Other Ambulatory Orders: Complete Blood Count w/Auto (Routine) Timeframe: 1 Week Location: Determined by Patient Ordered By: Bill Spangler Referrals: Viviane Galdamez FNP [Primary Care Provider] - 11/21/21 2:30 pm Patient Instructions: Anemia, Atrial Fibrillation, Iron Supplements (By mouth), Pantoprazole (By mouth), GI Discharge Instructions, Opioid Safety Discharge Attestations Time Spent in Discharge Care*: less than 30 min Quality Metrics Clinical Quality Measures [ No reported AMI, CVA or VTE this stay] Coding Level of Care Code Acute Chg FW DC note Diagnoses Anemia D64.9
== END 2021-11-08 13:09 | disposition home or self-care (01) ==
LOC: ER 16:03 → MEDSURG 17:30
PROVIDERS: Physician Assistant; Surgery; Admitting Provider Internal Medicine; Emergency Provider Family Medicine; PCP Nurse Practitioner Family; Visit Provider Internal Medicine
PROC: 0DJ08ZZ Inspection of Upper Intestinal Tract, Via Natural or Artificial Opening Endoscopic (ICD-10-PCS; CPT 43235; principal; 2021-11-08 09:15)
DX: D64.9 Anemia, unspecified (principal); I10 Essential (primary) hypertension; I48.91 Unspecified atrial fibrillation; Z79.01 Long term (current) use of anticoagulants; Z87.891 Personal history of nicotine dependence; I34.0 Nonrheumatic mitral (valve) insufficiency
CPT/HCPCS: 36415; 36430; 43235; 71045; 80048; 80053; 82607; 82728; 82746; 83540; 83550; 84466; 84484; 85025; 85045; 85610; 85730; 86850; 86900; 86920; 93005; 94760; 96361; 96374; 99285; C9113; G0378; J2704; J7030; P9040

== ENCOUNTER → 2022-10-27 13:59 | Outpatient (BNVA) | payer MEDICARE, SELFPAY | PROVIDERS: PCP Nurse Practitioner Family; Visit Provider Internal Medicine | DX: I48.91 Unspecified atrial fibrillation (principal); I10 Essential (primary) hypertension; I34.0 Nonrheumatic mitral (valve) insufficiency; Z87.891 Personal history of nicotine dependence | CPT/HCPCS: 99214 ==

== ENCOUNTER → 2023-07-27 10:47 | Outpatient (BNVA) | payer MEDICARE, SELFPAY | PROVIDERS: PCP Nurse Practitioner Family; Visit Provider Nurse Practitioner Family | DX: I48.0 Paroxysmal atrial fibrillation (principal); I10 Essential (primary) hypertension; Z87.891 Personal history of nicotine dependence | CPT/HCPCS: 99214 ==

== ENCOUNTER 2024-03-25 14:54 | Outpatient (CLI) | payer MEDICARE, SELFPAY ==
--- NOTE | 2024-03-25 14:57 | MM_ITS ---
WS: [id number] BILATERAL 3D TOMOSYNTHESIS DIGITAL SCREENING MAMMOGRAPHY WITH CAD CLINICAL INFORMATION: SCREENING HISTORY: Screening mammogram. No current complaints. COMPARISON: 2020 TECHNIQUE: Bilateral CC and MLO views. FINDINGS: Scattered fibroglandular densities bilaterally. No suspicious focal mass, asymmetry, calcifications, or architectural distortion. No evidence of malignancy. Vascular calcification. Incidental punctate c alcifications. MM/MM scr tomosynthesis [id number] IMPRESSION: DENSITY: There are scattered areas of fibroglandular density. BI-RADS: 2 - Benign. FOLLOW UP: 1 Year Follow-up Recommend return to annual screening mammography.
== END 2024-03-25 14:55 | disposition home or self-care (01) ==
LOC: RAD 14:57
PROVIDERS: PCP Nurse Practitioner Family; Visit Provider Nurse Practitioner Family
DX: Z12.31 Encounter for screening mammogram for malignant neoplasm of breast (principal); R92.323 Mammographic fibroglandular density, bilateral breasts; R92.1 Mammographic calcification found on diagnostic imaging of breast
CPT/HCPCS: 77063; 77067

== ENCOUNTER → 2024-04-27 15:00 | Outpatient (BNVA) | payer MEDICARE, OTHER, SELFPAY | PROVIDERS: PCP Nurse Practitioner Family; Visit Provider Internal Medicine | DX: I48.0 Paroxysmal atrial fibrillation (principal); I10 Essential (primary) hypertension; I34.0 Nonrheumatic mitral (valve) insufficiency; Z87.891 Personal history of nicotine dependence | CPT/HCPCS: 99214 ==

== ENCOUNTER 2024-09-08 10:50 | Outpatient (CLI) | payer MEDICARE, OTHER, SELFPAY ==
--- NOTE | 2024-09-08 10:54 | CT_ITS ---
WS: [id number] CT chest w con* [id number] HISTORY: NODULE OF RIGHT LUNG TECHNIQUE: Axial imaging performed through the thorax. Coronal and sagittal reformats are submitted. All CT scans at [facility] use at least one of these dose optimization techniques: automated exposure control; mA and/or kV adjustment per patient size (includes targeted exams where dose is matched to clinical indication); or iterative reconstruction. CONTRAST: Omnipaque 350; 100 mL IV. DLP: 243.58 mGy.cm COMPARISON: Chest radiograph 11/07/2021 Lungs and central airway: Moderate chronic emphysema. Biapical pleural fibrosis and scarring. There are a few scattered benign granulomata. Very mild interstitial thickening. No mass or nodule. Thin bandlike atelectasis in the anterior RIGHT upper lobe. Additional small area of groundglass attenuation in the RIGHT upper lobe. Pleura: Normal. No pleural effusion. Heart and pericardium: Mild cardiomegaly. There is significant enlargement of the LEFT atrium. Mediastinum and renita: No mediastinum or hilar adenopathy. Vessels: Moderate atherosclerosis aorta. Pulmonary artery size is normal. Chest wall and lower neck: No soft tissue masses. Upper abdomen: Negative. Osseous structures: Mild increase in thoracic kyphosis. No destructive bone lesions. CT/CT chest w con* [id number] IMPRESSION: 1. Chronic emphysema with prior granulomatous disease. 2. No pulmonary mass or nodule for which follow-up is recommended. 3. LEFT atrial enlargement.
[2024-09-08] MEDS: iohexol 350 mg/mL 500 mL Btl (per mL) IV (11:06)
== END 2024-09-08 10:51 | disposition home or self-care (01) ==
LOC: RAD 10:52
PROVIDERS: PCP Nurse Practitioner Family; Visit Provider Nurse Practitioner Family
DX: R91.1 Solitary pulmonary nodule (principal); J43.9 Emphysema, unspecified; I51.7 Cardiomegaly
CPT/HCPCS: 71260

== ENCOUNTER 2024-09-12 08:56 | Outpatient (CLI) | payer MEDICARE, OTHER, SELFPAY ==
--- NOTE | 2024-09-12 08:58 | US_ITS ---
WS: [id number] THYROID ULTRASOUND HISTORY: NONTOXIC MULTINODULAR GOITER COMPARISON: None available. Right lobe: 1.3 cm x 1.3 cm x 4.3 cm (w x ap x l). Volume: 3.6 cm3. Normal sized thyroid. Colloid cyst central superior RIGHT thyroid measures 2.4 mm. No solid mass. Left lobe: 1.0 cm x 1.3 cm x 3.5 cm (w x ap x l). Volume: 2.2 cm3. Small caliber gland with a few small scattered tiny colloid cysts. Isthmus: 0.2 cm. US/US thyroid [id number] IMPRESSION: 1. No solid thyroid masses or increased vascularity. 2. Tiny bilateral colloid cysts.
== END 2024-09-12 08:57 | disposition home or self-care (01) ==
LOC: RAD 08:57
PROVIDERS: PCP Nurse Practitioner Family; Visit Provider Nurse Practitioner Family
DX: E04.2 Nontoxic multinodular goiter (principal)
CPT/HCPCS: 76536